=== PATIENT | female | born 1985 | race Caucasian/White ===

== ENCOUNTER 2020-09-19 00:15 | Emergency (ER) | payer OTHER ==
[2020-09-19] MEDS ORDERED: BACITRACIN 0.9 GM PACKET ONE (00:47)
[2020-09-19] MEDS ORDERED: BACITRACIN 15 GM TUBE TOPICAL OINTMENT ONE (00:48)
[2020-09-19 00:51] VITALS: BP 108/69; PULSE 76; TEMP 98.3; BMI 23.0
[2020-09-19] MEDS ORDERED: AMOX TR/POT CLAV 875MG/125MG TABLETS (FP) PO ONE (01:44)
[2020-09-19] MEDS ORDERED: RABIES IMMUNE GLOBULIN 300 UNITS/1 ML VIAL IM ONE (01:46)
[2020-09-19] MEDS ORDERED: RABIES VACCINE (PCEC)/PF 2.5 UNIT/VIAL IM ONE ×2 (01:46→01:51)
[2020-09-19] MEDS ORDERED: AMOX TR/POT CLAV 875MG/125MG TABLETS (FP) ONE (01:51)
[2020-09-19] MEDS ORDERED: DIPHTH,PERTUSS(ACELL),TET 0.5 ML DISP.SYRIN IM ONE ×2 (02:05→02:07)
== END 2020-09-19 03:24 | disposition home or self-care (01) ==
LOC: JER 00:15
PROC: 3E0234Z Introduction of Serum, Toxoid and Vaccine into Muscle, Percutaneous Approach (ICD-10-PCS; principal; 2020-09-19)
PROC: 3E0234Z Introduction of Serum, Toxoid and Vaccine into Muscle, Percutaneous Approach (ICD-10-PCS; 2020-09-19)
DX: Z29.14 Encounter for prophylactic rabies immune globulin (principal)
CPT/HCPCS: 90375; 90675; 90715; 99284-25

== ENCOUNTER 2020-09-22 11:21 | Emergency (ER) | payer OTHER ==
[2020-09-22 11:30] VITALS: BP 107/68; PULSE 79; TEMP 98; BMI 23.2
[2020-09-22] MEDS ORDERED: RABIES VACCINE (PCEC)/PF 2.5 UNIT/VIAL IM ONE ×2 (11:34→11:43)
== END 2020-09-22 12:06 | disposition home or self-care (01) ==
LOC: JERFT 11:21
PROC: 3E0234Z Introduction of Serum, Toxoid and Vaccine into Muscle, Percutaneous Approach (ICD-10-PCS; principal; 2020-09-22)
DX: Z29.14 Encounter for prophylactic rabies immune globulin (principal)
CPT/HCPCS: 90675; 99284-25

== ENCOUNTER 2020-09-26 10:58 | Emergency (ER) | payer OTHER ==
[2020-09-26 11:04] VITALS: BP 103/67; PULSE 75; TEMP 97; BMI 23.0
[2020-09-26] MEDS ORDERED: RABIES VACCINE (PCEC)/PF 2.5 UNIT/VIAL IM ONE ×2 (11:12→11:26)
== END 2020-09-26 11:53 | disposition home or self-care (01) ==
LOC: JERFT 10:58
PROC: 3E023GC Introduction of Other Therapeutic Substance into Muscle, Percutaneous Approach (ICD-10-PCS; principal; 2020-09-26)
DX: S51.851A Open bite of right forearm, initial encounter (principal); W54.0XXA Bitten by dog, initial encounter; Z20.3 Contact with and (suspected) exposure to rabies
CPT/HCPCS: 90675; 99283-25

== ENCOUNTER 2020-10-03 12:32 | Emergency (ER) | payer OTHER ==
[2020-10-03 12:47] VITALS: BP 112/77; PULSE 66; TEMP 97.9; BMI 23.2
[2020-10-03] MEDS ORDERED: RABIES VACCINE (PCEC)/PF 2.5 UNIT/VIAL IM ONE ×2 (12:51→13:03)
== END 2020-10-03 13:16 | disposition home or self-care (01) ==
LOC: JER 12:32
PROC: 3E0234Z Introduction of Serum, Toxoid and Vaccine into Muscle, Percutaneous Approach (ICD-10-PCS; principal; 2020-10-03)
DX: Z29.14 Encounter for prophylactic rabies immune globulin (principal)
CPT/HCPCS: 90675; 99284-25